=== PATIENT | male | born 1935 | race Caucasian/White ===

== ENCOUNTER 2018-09-17 05:38 | Day surgery (SDC) | payer MEDICARE ==
[2018-09-15 13:27] LABS: BASOPHILS % (AUTO) 0.7 % (0.0-5.0); EOSINOPHILS % (AUTO) 2.4 % (0.0-8.0); HEMATOCRIT 42.9 % (42-54); LYMPHOCYTES % (AUTO) 24.4 % (21.0-51.0); MEAN CORPUSCULAR HEMOGLOBIN 34.5 pg (27.0-33.0); MEAN CORPUSCULAR HGB CONC 34.7 g/dL (32.0-36.0); MEAN CORPUSCULAR VOLUME 99.4 fL (79-99); MONOCYTES % (AUTO) 9.2 % (3.0-13.0); NEUTROPHILS % (AUTO) 63.3 % (40.0-77.0); NUCLEATED RED BLOOD CELLS 0.1 % (0.0-0.19); PLATELET COUNT (AUTO) 212 K/uL (130-400); RED BLOOD CELL COUNT(AUTO) 4.31 MIL/uL (4.50-6.20); RED CELL DISTRIBUTION WIDTH 13.5 % (11.0-15.5); WHITE BLOOD COUNT (AUTO) 5.4 K/uL (4.8-10.8)
[2018-09-15 13:36] VITALS: BP 130/92
[2018-09-15 13:36] LABS: CREATININE 1.1 mg/dL (0.5-1.5); POTASSIUM 4.2 mmol/L (3.5-5.1)
[2018-09-15 13:46] LABS: INR 1.27 (0.85-1.15); PARTIAL THROMBOPLASTIN TIME 37.1 SEC (26.3-35.5); PROTHROMBIN TIME 13.3 SEC (9.6-11.6)
--- NOTE | 2018-09-16 10:01 | NUR ---
LABS INFORMED HUSSAIN TONEY OF ABNORMAL PT/INR. PER DR. JANSEN, PROCEED WITH PLANNED PROCEDURE.
[2018-09-17] VITALS (9 sets, daily range): BP systolic 109–123; BP diastolic 64–77
[~2018-09-17] VITALS: Ht 177.8 cm; Wt 83.6 kg
[~2018-09-17 05:38] MED LIST: AEC81 PO; FURO20TA4 PO; IPRA42SP NS; MECL-111 PO; MELA10TA7 PO; MIRA50TA PO; MULT-503 PO; NEBI10TA PO; RIVA15TA PO; SACU1TAB PO
[2018-09-17] MEDS ORDERED: SODIUM CHLORIDE 0.9% 1000ML 1,000 ML IV ONE (06:42)
--- NOTE | 2018-09-17 07:15 | NUR ---
CALLED DOCTOR JANSEN TO NOTIFY HIM THAT PT HAS BRUISES IN FACE AND HAD A FALL TWO WEEKS AGO, PT REPORTS HE DID NOT LOOSE CONSICOUS AND FELL OVER A CHAIR, PT IS TAKING XARELTO, SHOWS NO NEUROLOGICAL SYMPTOMS, AWAKE ALERT ORIENTED X3, FAMILY AT BESIDE. WILL CONT TO MONITOR PER DOCTOR JANSEN NO NEW ORDERS.
[2018-09-17] MEDS ORDERED: LIDOCAINE HCL 2% 20ML ONE (07:45)
[2018-09-17] MEDS ORDERED: HEPARIN SODIUM 1000UNIT/ML 10ML VIAL ONE (07:53)
[2018-09-17] MEDS ORDERED: MIDAZOLAM HCL 1 MG/ML 2ML VIAL ONE ×3 (07:54→08:57)
[2018-09-17] MEDS ORDERED: MEPERIDINE-PF 25 MG/ML SYG ONE ×3 (07:54→08:57)
== END 2018-09-17 13:55 | disposition home or self-care (01) ==
LOC: SUH 05:38 → DAH 05:38 → SUH 13:55
PROVIDERS: ATTEND Internal Medicine Cardiovascular Disease
DX: I48.3 Typical atrial flutter (principal); Z79.01 Long term (current) use of anticoagulants; Z79.899 Other long term (current) drug therapy; Z98.890 Other specified postprocedural states
CPT/HCPCS: 36415; 80048; 85025; 85610; 85730; 93613; 93621; 93653; A4606; A4649; C1730 ×2; C1732; C1894 ×2; J1644 ×2; J2175 ×3; J2250 ×3; J7030; 99156; 99157; J3490